=== PATIENT | male | born 1955 | race Caucasian/White ===

== ENCOUNTER 2021-01-02 17:30 | Outpatient (CLI) | payer BC | END 2021-01-02 17:31 | disposition home or self-care (01) | LOC: SLEEPLAB 17:30 | PROVIDERS: ATTEND Family Medicine | DX: G47.33 Obstructive sleep apnea (adult) (pediatric) (principal); R53.83 Other fatigue; R09.89 Other specified symptoms and signs involving the circulatory and respiratory systems; R06.83 Snoring; G47.00 Insomnia, unspecified; R35.1 Nocturia; I10 Essential (primary) hypertension | CPT/HCPCS: 95806 ==

== ENCOUNTER 2021-05-05 04:15 | Emergency (ER) | payer BC ==
[2021-05-05] MEDS ORDERED: Albuterol 200 PUFF (6.7GM INHALER) ONE (04:38)
[2021-05-05] MEDS ORDERED: methylPREDNISolone Sod Succ/PF 125 MG/2 ML VIAL ONE (04:41)
[2021-05-05] MEDS ORDERED: Magnesium 2 GM/50 ML BAG (IN WATER) ONE (04:41)
[2021-05-05 05:10] LABS: #Eosinphils 0.2 thou/uL (0.0-0.7); #Lymphocytes 1.4 thou/uL (1.20-3.40); #Monocytes 0.6 thou/uL (0.11-0.59); #Neutrophils 2.6 thou/uL (1.40-6.50); %Basophils 0.6 % (0.0-1.0); %Eosinophils 3.4 % (0.0-10.0); %Lymphocytes 29.2 % (21.0-51.0); %Monocytes 12.8 % (0.0-10.0); Hemoglobin 14.7 g/dL (14.0-18.0); Mean Corpuscular HGB CONC 35.2 g/dL (32.0-36.0); Mean Corpuscular Hemoglobin 36.3 pg (27.0-31.0); Mean Platelet Volume 7.6 fL (7.4-10.4); Platelet Count 195 thou/uL (130-400); Red Blood Cell (RBC) Count 4.04 mill/uL (4.70-6.10); White Blood Cell (WBC) Count 4.8 thou/uL (4.8-10.8)
[2021-05-05 06:16] LABS: ALT (SGPT) 33 U/L (8-55); AST (SGOT) 31 U/L (5-34); Albumin 3.7 g/dL (3.4-4.8); Alkaline Phosphatase 58 U/L (40-110); Anion Gap 15 mmol/L (10-20); BUN (Urea Nitrogen) 11 mg/dL (8.4-25.7); Bilirubin, Total 0.3 mg/dL (0.2-1.2); Calc. Creatinine Clearance 0 mL/min (70-130); Calcium 8.7 mg/dL (7.8-10.44); Carbon Dioxide 21 mmol/L (23-31); Chloride 103 mmol/L (98-107); Globulin 2.7 g/dL (2.4-3.5); Glucose 104 mg/dL (80-115); Potassium 4.1 mmol/L (3.5-5.1); Protein, Total 6.4 g/dL (5.8-8.1); Sodium 135 mmol/L (136-145)
== END 2021-05-05 06:42 | disposition home or self-care (01) ==
LOC: ERS 04:15
DX: U07.1 COVID-19 (principal); F17.220 Nicotine dependence, chewing tobacco, uncomplicated; Z79.899 Other long term (current) drug therapy
CPT/HCPCS: 71045; 80053; 84484; 85025; 93005; 96365; 96375; J2930; J3475